=== PATIENT | female | born 1995 ===

== ENCOUNTER 2023-11-10 11:12 | Emergency (ER) | payer OTHER ==
[~2023-11-10] VITALS: Ht 162.5 cm
[2023-11-10] MEDS ORDERED: ACETAMINOPHEN 325 MG TAB PO ONE (11:25)
[2023-11-10] MEDS ORDERED: IBUPROFEN 400 MG TAB PO ONE (11:25)
[2023-11-10 11:44] LABS: BASO % 0.3 % (0.0-1.0); EOS # 0.1 10*3/uL (0.0-0.4); EOS % 0.8 % (1.0-4.0); HEMATOCRIT 41.8 % (37.0-47.0); LYMPH # 2.6 10*3/uL (1.3-4.4); LYMPH % 29.8 % (27.0-41.0); MEAN CELL VOLUME 87.1 fl (81.0-99.0); MEAN CORPUSCULAR HGB 27.3 pg (27.0-31.0); MEAN CORPUSCULAR HGB CONC 31.3 g/dl (33.0-37.0); MEAN PLATELET VOLUME 11.2 fl (9.6-12.3); MONO # 0.6 10*3/uL (0.1-1.0); MONO % 6.6 % (3.0-9.0); NEUT # 5.5 10*3/uL (2.3-7.9); NEUT % 62.3 % (47.0-73.0); PLATELET COUNT AUTOMATED 324 10*3/uL (130-400); RED CELL DISTRI WIDTH 14.5 % (0-14.5); WHITE BLOOD COUNT 8.8 10*3/uL (4.8-10.8)
[2023-11-10 12:07] LABS: ALKALINE PHOSPHATASE 83 U/L (46-116); BUN 8 mg/dl (9-23); CHLORIDE 106 mmol/L (98-107); SGPT/ALT 25 U/L (5-49); TOTAL PROTEIN 7.5 gm/dL (6.0-8.0)
[2023-11-10 12:11] LABS: B-hCG (QUALITATIVE) NEGATIVE (NEGATIVE)
[2023-11-10] MEDS ORDERED: Motrin,Rufen400 MG PO (14:41)
[2023-11-10] MEDS ORDERED: TYLENOL EXTRA500 MG PO (14:41)
[2023-11-10] MEDS ORDERED: ASPERCREME LID1 EACH T (14:41)
== END 2023-11-10 15:04 | disposition home or self-care (01) ==
LOC: ED 11:12
PROVIDERS: Emergency Medicine
DX: S16.1XXA Strain of muscle, fascia and tendon at neck level, initial encounter (principal); S80.212A Abrasion, left knee, initial encounter; M25.512 Pain in left shoulder; R51.9 Headache, unspecified; Z88.8 Allergy status to other drugs, medicaments and biological substances; V63.5XXA Driver of heavy transport vehicle injured in collision with car, pick-up truck or van in traffic accident, initial encounter; Y93.I9 Activity, other involving external motion; Y92.410 Unspecified street and highway as the place of occurrence of the external cause; Y99.8 Other external cause status